=== PATIENT | female | born 1985 | race Caucasian/White ===

== ENCOUNTER 2017-01-23 02:05 | Emergency (ER) | payer BC ==
[2017-01-23 02:31] VITALS: BP 110/65; PULSE 80; TEMP 98.3; BMI 21.9
--- NOTE | 2017-01-23 03:24 | PDOC ---
History of Present Illness - General History Source: Patient Exam Limitations: No Limitations - History of Present Illness Initial Comments: 01/23/17 04:22 The patient is a 31 year old female with no significant past medical history, who presents to the ER with left axillary pain for 10 days. Patient states she thinks that this is a boil which has become enlarged, warmer, and has surrounding redness. Patient states she warmed the area and cleaned it with alcohol without complete relief of symptoms. Patient says she was recently treated for bacterial vaginosis with metronidazole. Denies weakness, numbness, bleeding Denies paresthesia Denies fever, chills Denies nausea, vomiting <Jacey Hoyos - Last Filed: 01/23/17 04:22> <Mindy Rich - Last Filed: 01/24/17 22:50> - General Chief Complaint: Pain Stated Complaint: LUMP/LT ARM Time Seen by Provider: 01/23/17 02:24 Past History <Jacey Hoyos - Last Filed: 01/23/17 04:22> - Immunization History Immunization Up to Date: Yes - Psycho/Social/Smoking Cessation Hx Suicidal Ideation: No Smoking History: Never smoked Have you smoked in the past 12 months: No Information on smoking cessation initiated: No Hx Alcohol Use: No Drug/Substance Use Hx: No Substance Use Type: None <Mindy Rich - Last Filed: 01/24/17 22:50> - Past Medical History Allergies/Adverse Reactions: Allergies Allergy/AdvReac Type Severity Reaction Status Date / Time No Known Allergies Allergy Verified 01/23/17 02:28 Home Medications: Ambulatory Orders Bacitracin - [Bacitracin Topical Ointment -] 1 applic TP BID #10 g 01/23/17 Clindamycin [Cleocin -] 300 mg PO Q6H #28 capsule 01/23/17 Review of Systems - Review of Systems Able to Perform ROS?: Yes Comments:: 01/23/17 04:22 CONSTITUTIONAL: Absent: fever, no chills, no fatigue EYES: Absent: visual changes ENT: Absent: ear pain, no sore throat CARDIOVASCULAR: Absent: chest pain, no palpitations RESPIRATORY: Absent: cough, no SOB GI: Absent: abdominal pain, no nausea, no vomiting, no constipation, no diarrhea GENITOURINARY: Absent: dysuria, no frequency, no hematuria MUSCULOSKELETAL: Absent: back pain, no arthralgia, no myalgia SKIN: Present: Boil on the left axillary Absent: rash NEURO: Absent: headache <Nes,Jacey - Last Filed: 01/23/17 04:22> *Physical Exam - Vital Signs Last Vital Signs Temp Pulse Resp BP Pulse Ox 98.3 F 80 20 110/65 99 01/23/17 02:28 01/23/17 02:28 01/23/17 02:28 01/23/17 02:28 01/23/17 02:28 - Physical Exam Comments: 01/23/17 04:23 GENERAL: Well-appearing, well-nourished. No apparent distress. HEENT: Normocephalic, atraumatic. PERRL, EOM intact. CARDIOVASCULAR: Normal S1, S2. Regular rate and rhythm. PULMONARY: Clear to auscultation bilaterally. ABDOMEN: Soft, non-distended, non-tender. EXTREMITIES: Normal ROM in all four extremities. No gross deformities. SKIN: 1 cm x 1 cm furuncle non fluctuant, erythematous, tender to palpation. Warm, dry. NEUROLOGICAL: No focal neurological deficits. <NeyinaJacey - Last Filed: 01/23/17 04:22> - Vital Signs Last Vital Signs Temp Pulse Resp BP Pulse Ox 98.3 F 80 20 110/65 99 01/23/17 02:28 01/23/17 02:28 01/23/17 02:28 01/23/17 02:28 01/23/17 02:28 <Mindy Rich - Last Filed: 01/24/17 22:50> ED Treatment Course - Medications Given in the ED: ED Medications Discontinued Medications Generic Name Dose Route Start Last Admin Trade Name Freq PRN Reason Stop Dose Admin Bacitracin 1 applic 01/23/17 03:38 01/23/17 03:44 Bacitracin - TP 01/23/17 03:39 1 applic ONCE ONE Administration Clindamycin HCl 300 mg 01/23/17 03:37 01/23/17 03:44 Cleocin - PO 01/23/17 03:38 300 mg ONCE ONE Administration Ibuprofen 600 mg 01/23/17 03:38 01/23/17 03:44 Motrin - PO 01/23/17 03:39 600 mg ONCE ONE Administration <Jacey Hoyos - Last Filed: 01/23/17 04:22> Medical Decision Making - Medical Decision Making 01/24/17 22:49 Pt comes with armpit pimple/early abscess. She will receive antibiotics; nothing to drain at this time. She has an early folliculitis. Pt will return if the abx is not helping the infection, or if the pimple gets larger or more painful. <Mindy Rich - Last Filed: 01/24/17 22:50> *DC/Admit/Observation/Transfer - Attestations Scribe Attestion: 01/23/17 04:25 Documentation prepared by Jacey Hoyos, acting as emergency medicine medical director for Mindy Rich MD. <Jacey Hoyos - Last Filed: 01/23/17 04:22> - Discharge Dispostion Admit: No <Mindy Rich - Last Filed: 01/24/17 22:50> Diagnosis at time of Disposition: Folliculitis - Discharge Dispostion Disposition: HOME Condition at time of disposition: Stable - Prescriptions Prescriptions: Bacitracin - [Bacitracin Topical Ointment -] 1 applic TP BID #10 g Clindamycin [Cleocin -] 300 mg PO Q6H #28 capsule - Patient Instructions Printed Discharge Instructions: DI for Folliculitis
[2017-01-23] MEDS ORDERED: CLINDAMYCIN HCL 150 MG CAPSULE (FP) PO ONE (03:37)
[2017-01-23] MEDS ORDERED: IBUPROFEN 600 MG TABLET (FP) PO ONE ×2 (03:38→03:43)
[2017-01-23] MEDS ORDERED: BACITRACIN 30 GM TUBE TOPICAL OINTMENT TP ONE (03:38)
[2017-01-23] MEDS ORDERED: CLINDAMYCIN HCL 150 MG CAPSULE (FP) ONE (03:43)
== END 2017-01-23 03:47 | disposition home or self-care (01) ==
LOC: JER 02:05
DX: L73.8 Other specified follicular disorders (principal)
CPT/HCPCS: 99282-25

== ENCOUNTER 2018-05-01 04:05 | Emergency (ER) | payer BC ==
--- NOTE | 2018-05-01 04:17 | PDOC ---
History of Present Illness - General Chief Complaint: Vaginal Bleeding Stated Complaint: VAGINAL BLEEDING, Time Seen by Provider: 05/01/18 04:17 Past History - Past Medical History Allergies/Adverse Reactions: Allergies Allergy/AdvReac Type Severity Reaction Status Date / Time No Known Allergies Allergy Verified 01/23/17 02:28 Home Medications: Ambulatory Orders Bacitracin - [Bacitracin Topical Ointment -] 1 applic TP BID #10 g 01/23/17 Clindamycin [Cleocin -] 300 mg PO Q6H #28 capsule 01/23/17 - Immunization History Immunization Up to Date: Yes - Suicide/Smoking/Psychosocial Hx Smoking History: Never smoked Have you smoked in the past 12 months: No Hx Alcohol Use: No Drug/Substance Use Hx: No Substance Use Type: None *DC/Admit/Observation/Transfer - Referrals Referrals: Leni Henao MD [Primary Care Provider] - - Patient Instructions - Post Discharge Activity
[2018-05-01] MEDS ORDERED: SODIUM CHLORIDE 0.9% 500 ML INFUS.BAG IV ONE (04:20)
[2018-05-01] MEDS ORDERED: morphine CARPU-JECT 2 MG/1 ML DISP.SYRIN IVPUSH ONE (04:20)
[2018-05-01 04:25] VITALS: BMI 22.8
[2018-05-01] MEDS ORDERED: MORPHINE SULFATE 2 MG/ML VIAL ONE (04:30)
[2018-05-01] MEDS ORDERED: ACETAMINOPHEN INJECTION 100 ML IVPB ONE (04:35)
[2018-05-01] MEDS ORDERED: ACETAMINOPHEN 1000 MG/100 ML VIAL (NON FORMULARY) IVPB ONE (04:49)
--- NOTE | 2018-05-01 04:55 | PDOC ---
History of Present Illness - General Chief Complaint: Vaginal Bleeding Stated Complaint: VAGINAL BLEEDING, Time Seen by Provider: 05/01/18 04:17 History Source: Patient Exam Limitations: No Limitations - History of Present Illness Initial Comments: 05/01/18 04:50 Patient is a 32 year old female , LMP 03/16/18 c/o vaginal bleeding which started about 1 hours prior to arrival. States she has been having week hcg levels done because there was and problem of the implantation of the fetus. States she has had an US which showed IUP and 48 hours ago her HCG was 32. Pain is 8/10 crampy type in the lower abd and she was passing clots. No nausea , vomiting, fever, chills, dysuria OBS: Dr. Henao PMHX: as above PSOCHX: neg etoh, drugs, etoh ALL: NKDA GENERAL/CONSTITUTIONAL: [No fever or chills. No weakness. No weight change.] HEAD, EYES, EARS, NOSE AND THROAT: [No change in vision. No ear pain or discharge. No sore throat.] CARDIOVASCULAR: [No chest pain or shortness of breath.] RESPIRATORY: [No cough, wheezing, or hemoptysis.] GASTROINTESTINAL: [No nausea, vomiting, diarrhea or constipation. No rectal bleeding.] GENITOURINARY: [No dysuria, frequency, or change in urination.] MUSCULOSKELETAL: [No joint or muscle swelling or pain. No neck or back pain.] SKIN AND BREASTS: [No rash or easy bruising.] NEUROLOGIC: [No headache, vertigo, loss of consciousness, or loss of sensation.] PSYCHIATRIC: [No depression or anxiety.] ENDOCRINE: [No increased thirst. No abnormal weight change.] HEMATOLOGIC/LYMPHATIC: [No anemia, easy bleeding, or history of blood clots.] ALLERGIC/IMMUNOLOGIC: [No hives or skin allergy. No latex allergy.] GENERAL: [The patient is awake, alert, and fully oriented, in moderate painul distress.] HEAD: [Normal with no signs of trauma.] EYES: [Pupils equal, round and reactive to light, extraocular movements intact, sclera anicteric, conjunctiva clear.] ENT: [Ears normal, nares patent, oropharynx clear without exudates. Moist mucous membranes.] NECK: [Normal range of motion, supple without lymphadenopathy, JVD, or masses.] LUNGS: [Breath sounds equal, clear to auscultation bilaterally. No wheezes, and no crackles.] HEART: [Regular rate and rhythm, normal S1 and S2 without murmur, rub.] ABDOMEN: [Soft, (+) tenderness in the lower abd, normoactive bowel sounds. No guarding, no rebound. No masses.] PELVIC: (+) small amount of dark blood in the vault, os closed EXTREMITIES: [Normal range of motion, no edema. No clubbing or cyanosis. No cords, erythema, or tenderness.] NEUROLOGICAL: [Cranial nerves II through XII grossly intact. Normal speech, normal gait.] PSYCH: [Normal mood, normal affect.] SKIN: [Warm, Dry, normal turgor, no rashes or lesions noted.] Past History - Past Medical History Allergies/Adverse Reactions: Allergies Allergy/AdvReac Type Severity Reaction Status Date / Time No Known Allergies Allergy Verified 01/23/17 02:28 Home Medications: Ambulatory Orders Bacitracin - [Bacitracin Topical Ointment -] 1 applic TP BID #10 g 01/23/17 Clindamycin [Cleocin -] 300 mg PO Q6H #28 capsule 01/23/17 COPD: No - Reproductive History Is Patient Now?: Yes (#): 1 - Immunization History Immunization Up to Date: Yes - Suicide/Smoking/Psychosocial Hx Smoking History: Never smoked Have you smoked in the past 12 months: No Hx Alcohol Use: No Drug/Substance Use Hx: No Substance Use Type: None *Physical Exam - Vital Signs Last Vital Signs Temp Pulse Resp BP Pulse Ox 98.1 F 92 H 18 145/78 99 05/01/18 04:15 05/01/18 04:15 05/01/18 04:15 05/01/18 04:15 05/01/18 04:15 ED Treatment Course - LABORATORY CBC & Chemistry Diagram: 05/01/18 05:00 05/01/18 05:00 - Medications Given in the ED: ED Medications Discontinued Medications Generic Name Dose Route Start Last Admin Trade Name Freq PRN Reason Stop Dose Admin Morphine Sulfate 2 mg 05/01/18 04:20 05/01/18 04:38 Morphine Injection - IVPUSH 05/01/18 04:21 Not Given ONCE ONE Sodium Chloride 1,000 ml 05/01/18 04:20 05/01/18 04:38 Normal Saline - IV 05/01/18 04:21 1,000 ml ONCE ONE Administration Medical Decision Making - Medical Decision Making 05/01/18 04:50 Patient is a 32 year old female , LMP 03/16/18 c/o vaginal bleeding which started about 1 hours prior to arrival consistent with threatened ab. will get labs pain meds ivf 05/01/18 06:29 Laboratory Tests 05/01/18 05/01/18 04:38 05:00 WBC 6.9 Hgb 12.9 Hct 38.8 Plt Count 194 Beta HCG, Quant 432.4 05/01/18 06:30 Laboratory Tests 05/01/18 05:00 Blood Type A POSITIVE Bedside US done no IUP seen, debris in the uterus I discussed the physical exam findings, ancillary test results and final diagnoses with the patient. I answered all of the patient's questions. The patient was satisfied with the care received and felt comfortable with the discharge plan and treatment plan. The Patient agrees to follow up with the primary care physician within 24-72 hours. *DC/Admit/Observation/Transfer Diagnosis at time of Disposition: Threatened - Discharge Dispostion Disposition: HOME Condition at time of disposition: Stable - Referrals Referrals: Leni Henao MD [Primary Care Provider] - - Patient Instructions Printed Discharge Instructions: DI for Threatened Additional Instructions: Your Discharge Instructions: You must call primary care physician within 24 hours to arrange follow-up. Return to the Emergency Department with any new, persistent or worsening symptoms, for fever, chills, SOB, dizziness or any other concerning changes that may occur. - Post Discharge Activity
[2018-05-01 05:14] LABS: BASO % 0.8 % (0-2.0); HEMATOCRIT 38.8 % (32.4-45.2); HEMOGLOBIN 12.9 GM/dL (10.7-15.3); LYMPH % 31.6 % (8-40); MCH 30.6 pg (25.7-33.7); MCHC 33.3 g/dl (32.0-36.0); MEAN PLT VOLUME 10.3 fl (7.5-11.1); MONO % 12.9 % (3.8-10.2); NEUT % 53.7 % (42.8-82.8); PLATELET COUNT 194 K/MM3 (134-434); RBC 4.22 M/mm3 (3.60-5.2); RDW 13.7 % (11.6-15.6); WHITE BLOOD COUNT 6.9 K/mm3 (4.0-10.0)
[2018-05-01 05:39] LABS: ALK PHOS 53 U/L (45-117); ANION GAP 7 MMOL/L (8-16); BILIRUBIN,TOTAL 0.5 mg/dL (0.2-1.0); BLOOD UREA NITROGEN 13 mg/dL (7-18); CALCIUM 8.4 mg/dL (8.5-10.1); CHLORIDE 107 mmol/L (98-107); CO2 26 mmol/L (21-32); CREATININE 0.7 mg/dL (0.55-1.02); GLUCOSE,RANDOM 105 mg/dL (74-106); POTASSIUM 4.1 mmol/L (3.5-5.1); SGOT/AST 15 U/L (15-37); SGPT/ALT 20 U/L (12-78); SODIUM 140 mmol/L (136-145); TOT PROT 7.4 g/dl (6.4-8.2)
[2018-05-01 06:38] VITALS: BP 126/67; PULSE 81; TEMP 98
== END 2018-05-01 06:38 | disposition home or self-care (01) ==
LOC: JER 04:05
DX: O26.891 Other specified pregnancy related conditions, first trimester (principal); O20.0 Threatened abortion; Z3A.01 Less than 8 weeks gestation of pregnancy
CPT/HCPCS: 36415; 80053; 84702; 85025; 86850; 86900; 86901; 99282-25; J0131

== ENCOUNTER → 2021-12-31 | Day surgery (SDC) | payer OTHER | END | disposition home or self-care (01) | LOC: JRADUS-SUR 09:43 | PROVIDERS: ATTEND Internal Medicine Pulmonary Disease | PROC: 0H9V3ZX Drainage of Bilateral Breast, Percutaneous Approach, Diagnostic (ICD-10-PCS; principal; 2021-12-31) | DX: N60.02 Solitary cyst of left breast (principal); N60.01 Solitary cyst of right breast | CPT/HCPCS: 19000; 76942-TC ==